=== PATIENT | male | born 1975 | race Caucasian/White ===

== ENCOUNTER 2018-10-03 12:22 | Emergency (ER) | payer BC ==
[~2018-10-03] VITALS: Ht 180.3 cm; Wt 90.7 kg
[2018-10-03] MEDS ORDERED: ESCITALOPRAM OX20 MG PO (12:35)
[2018-10-03] MEDS ORDERED: BUSPIRONE HCL10 MG PO (12:35)
[2018-10-03 12:46] LABS: ABSOLUTE BASOPHILS 0.1 thou/uL (0.0-0.2); ABSOLUTE EOSINOPHILS 0.1 thou/uL (0.0-0.7); ABSOLUTE LYMPHOCYTES 2.1 thou/uL (0.8-5.3); ABSOLUTE MONOCYTES 0.5 thou/uL (0.0-1.2); ABSOLUTE NEUTROPHILS 2.5 thou/uL (1.6-8.1); BASOPHILS 1.1 %; EOSINOPHILS 2.4 %; HEMATOCRIT 43.1 % (42.0-52.0); HEMOGLOBIN 14.8 gm/dL (14.0-18.0); LYMPHOCYTES 39.7 %; MCH 31.9 pg (26.0-34.0); MCHC 34.4 g/dL (28.0-37.0); MCV 92.9 fL (80.0-100.0); MONOCYTES 8.9 %; MPV 7.2 fl. (7.2-11.1); NUCLEATED RBCS 0 /100WBC; PLATELET COUNT* 272 thou/uL (150-400); POLYS 47.9 %; RBC 4.64 mil/uL (4.50-6.00); RDW-CV 13.8 % (10.5-14.5); WBC 5.2 thou/uL (4.0-11.0)
[2018-10-03 12:53] LABS: ANION GAP 4 mmol/L (7-16); BUN 10 mg/dL (7-18); CALCIUM 8.5 mg/dL (8.5-10.1); CHLORIDE 106 mmol/L (98-107); CO2 30 mmol/L (21-32); CREATININE 0.9 mg/dL (0.6-1.3); GLUCOSE 92 mg/dL (70-99); POTASSIUM 3.9 mmol/L (3.5-5.1); SODIUM 140 mmol/L (136-145)
[2018-10-03 12:59] LABS: ALBUMIN 3.7 g/dL (3.4-5.0); ALKALINE PHOSPHATASE 59 U/L (46-116); LIPASE 151 U/L (73-393); MAGNESIUM 1.7 mg/dL (1.8-2.4); SGOT 12 U/L (15-37); SGPT 20 U/L (30-65); TOTAL BILIRUBIN 0.4 mg/dL (<0.1-1.0); TOTAL PROTEIN 6.8 g/dL (6.4-8.2); TROPONIN-I LEVEL <0.06 ng/mL (<0.06)
[2018-10-03] MEDS ORDERED: HYDROCODONE-AP1 EAC6 PO (13:50)
[2018-10-03 14:08] VITALS: BP 131/80
--- NOTE | 2018-10-04 10:22 | EKG ---
[place] [address] ELECTROCARDIOGRAM REPORT Name: GEREMIAS ARRIAGA Room: [facility]#: [id number] Admission: 10/03/18 Attend Phys: Discharge: 10/03/18 Date of : 77 Report #: [id number] THIS REPORT FOR: //name// [facility] ED Test Date: 2018-10-03 Test Time: 12:30:11 Pat Name: GEREMIAS ARRIAGA Department: Room: Gender: Weekend Caregiver: Symone PAREKH : 1975 Requested By: Rashawn Donato Order Number: [id number] MD: Darius Miller Measurements Intervals [place] Rate: 65 P: 65 [place]: 152 QRS: 59 QRSD: 95 T: 34 QT: 380 QTc: 396 Interpretive Statements Sinus rhythm No previous ECG available for comparison Electronically Signed On 10-04-2018 10:21:56 SCRAP SEPARATOR by Darius Miller [email or web address] <ELECTRONICALLY SIGNED> By: Darius Miller MD, [facility] 10/04/18 1021 1230 1230 Darius Miller MD, FACC /EPI
== END 2018-10-03 14:10 | disposition home or self-care (01) ==
LOC: M.ERS 12:22
PROVIDERS: Emergency Medicine Emergency Medical Services
DX: R07.89 Other chest pain (principal); F41.9 Anxiety disorder, unspecified